=== PATIENT | male | born 1960 | race Hispanic/Latino ===

== ENCOUNTER 2017-10-19 15:52 | Emergency (ER) | payer MEDICARE ==
[~2017-10-19 15:52] MED LIST: ESOM40CA PO; EZET1TAB21 PO; LOSA50TA37 PO; OXYC30TA86 PO; TESTIN
== END 2017-10-19 16:17 | disposition home or self-care (01) ==
LOC: EDH 15:52
DX: G89.29 Other chronic pain (principal); M25.512 Pain in left shoulder; I10 Essential (primary) hypertension; E78.5 Hyperlipidemia, unspecified; Z72.0 Tobacco use
CPT/HCPCS: 99281

== ENCOUNTER → 2018-11-16 | Outpatient (CLI) | payer MEDICARE ==
[~2018-11-16] MED LIST changes: -LOSA50TA37 PO; +LOSA50TA64 PO
== END | disposition home or self-care (01) ==
LOC: RAH 14:57
PROVIDERS: ATTEND Urology
DX: N50.3 Cyst of epididymis (principal)
CPT/HCPCS: 76870

== ENCOUNTER 2023-06-25 07:41 | Day surgery (SDC) | payer MEDICARE ==
[2023-06-25] VITALS (9 sets, daily range): BP systolic 100–128; BP diastolic 43–73; PULSE 54–63; RESP 14–20
[~2023-06-25] VITALS: Ht 160 cm; Wt 78.5 kg
[~2023-06-25 07:41] MED LIST changes: +0.9%NACL 1000ML 1,000 ML IV ONE; -ESOM40CA PO; -EZET1TAB21 PO; +FENT1PAT63 TD; +HYDR8TAB18 PO; +LACT10SO5 PO; +LINA145C PO; -OXYC30TA86 PO; +SACC250C9 PO
[2023-06-25] MEDS ORDERED: 0.9%NACL 1000ML 1,000 ML IV ONE (09:27)
[2023-06-25] MEDS ORDERED: PROPOFOL 10 MG/ML 20ML VIAL IV ONE (12:09)
== END 2023-06-25 13:50 | disposition home or self-care (01) ==
LOC: ENDO 07:41 → DAH 07:41 → ENDO 13:50
PROVIDERS: ATTEND Internal Medicine Gastroenterology
DX: Z12.11 Encounter for screening for malignant neoplasm of colon (principal); R13.10 Dysphagia, unspecified; D12.2 Benign neoplasm of ascending colon; R68.81 Early satiety; K64.4 Residual hemorrhoidal skin tags; K31.89 Other diseases of stomach and duodenum; K59.00 Constipation, unspecified; I10 Essential (primary) hypertension; E78.5 Hyperlipidemia, unspecified; Z98.890 Other specified postprocedural states; Z79.899 Other long term (current) drug therapy
CPT/HCPCS: 43239; 43248; 45380; 45385; J7030 ×3; J2704; A4620; A4215; A4223; A7002; A4222; A4221; A4663; A4216; A4606; J3490